=== PATIENT | male | born 1940 | race Caucasian/White ===

== ENCOUNTER 2023-04-03 14:11 | Emergency (ER) | payer MEDICARE, MEDICAID, SELFPAY ==
[2023-04-03 14:12] VITALS: BP 128/68; PULSE 69; RESP 14; O2SAT 100
[2023-04-03 14:13] VITALS: BP 128/68; PULSE 73; RESP 17
--- NOTE | 2023-04-03 14:21 | CT_ITS ---
The [address] [address] Patient Name: FRANCOISE MORRIS MRN: [id number] date: 1940 Sex: M Assigned Patient Location: ER Current Patient Location: ER Accession/Order Number: [id number] Exam Date: 04/03/2023 15:00 Report Date: 04/03/2023 15:39 At the request of: CRISTAL CARDOZA Procedure: CT head/brain wo con EXAMINATION: CT head/brain wo con HISTORY: dizzy, fall ; right forehead hematoma COMPARISON: No relevant comparison available. TECHNIQUE: Axial CT images were obtained without IV contrast. Dose reduction techniques were achieved by using automated exposure control and/or adjustment of mA and/or kV according to patient size and/or use of iterative reconstruction technique. FINDINGS: BRAIN: No edema, hemorrhage, mass, acute infarction, or inappropriate atrophy. CSF SPACES: No hydrocephalus, subarachnoid hemorrhage, or mass. Appropriate for age. SKULL: No fracture, mass, or other significant visible lesion. SINUSES: No significant mucosal thickening or fluid on the limited views. ORBITS: No appreciable abnormality on the limited views. OTHER: Small area of subcutaneous bruising/edema overlying the right calvarium just above the forehead. No radiopaque foreign body. CT/CT head/brain wo con IMPRESSION: 1. No intracranial hemorrhage or acute abnormality. Age consistent chronic changes. 2. Right frontal scalp small hematoma. 3. No fracture of the calvarium. Electronically authenticated by: DEIDRA CAREY Date: 04/03/2023 15:39
--- NOTE | 2023-04-03 14:21 | XR_ITS ---
The [address] [address] Patient Name: FRANCOISE MORRIS MRN: [id number] date: 1940 Sex: M Assigned Patient Location: ER Current Patient Location: ER Accession/Order Number: [id number] Exam Date: 04/03/2023 15:00 Report Date: 04/03/2023 15:22 At the request of: CRISTAL CARDOZA Procedure: XR chest 1V EXAMINATION: XR chest 1V HISTORY: Dizziness COMPARISON: None. TECHNIQUE: Portable chest FINDINGS: The lung parenchyma is free of consolidation or infiltrate. No pneumothorax or pleural effusion. Status post median sternotomy. The cardiac, mediastinal and hilar contours are normal. The visualized osseous structures exhibit no gross abnormality. XR/XR chest 1V IMPRESSION: No acute cardiopulmonary abnormality. Electronically authenticated by: NIALL VILLAFUERTE Date: 04/03/2023 15:22
--- NOTE | 2023-04-03 14:21 | ECG_ITS ---
The [facility] Test Date: 2023-04-03 Pat Name: Livan Fitzgerald Department: Room: - Gender: Male Management Supervisor: : 1940 Requested By: [id number] Order Number: [id number] Reading MD: OG RICHARD Measurements Intervals [place] Rate: 76 P: -[id number] [place]: -[id number] QRS: 177 QRSD: 146 T: 22 QT: 418 QTc: 449 Interpretive Statements 48775 Atrial fibrillation 2330 Nonspecific intraventricular conduction block 3534 Lateral myocardial infarction, age undetermined 9150 abnormal ECG No previous ECG available for comparison Electronically Signed On 04-04-2023 7:11:53 EDT by OG RICHARD
--- NOTE | 2023-04-03 14:23 | CT_ITS ---
[address] [address] Patient Name: FRANCOISE MORRIS MRN: [id number] date: 1940 Sex: M Assigned Patient Location: ER Current Patient Location: ER Accession/Order Number: [id number] Exam Date: 04/03/2023 15:00 Report Date: 04/03/2023 15:45 At the request of: CRISTAL CARDOZA Procedure: CT cervical spine wo con EXAMINATION: CT cervical spine wo con HISTORY: dizzy, fall , right forehead hematoma COMPARISON: CT C-spine 06/08/2022 TECHNIQUE: Axial, Coronal, and Sagittal images were created without IV contrast. Dose reduction techniques were achieved by using automated exposure control and/or adjustment of mA and/or kV according to patient size and/or use of iterative reconstruction technique. FINDINGS: VERTEBRAL BODIES: Slight reversal of the normal lordotic curvature. Mild grade 1 retrolisthesis of C4 in relation to C3 and C5. No fracture. FACET JOINTS: No disruption or abnormal widening. DISCS: Moderate narrowing C3-4. CENTRAL CANAL: Suspect moderate narrowing posterior to C3 on 4 and C4-5. PARASPINAL AREA: No visible mass. CT/CT cervical spine wo con IMPRESSION: 1. No acute abnormality. 2. Stable mild/moderate degenerative changes. Electronically authenticated by: DEIDRA CAREY Date: 04/03/2023 15:45
--- NOTE | 2023-04-03 14:25 | PC.NURSE ---
pt has hx of dementia and is at [facility].
--- NOTE | 2023-04-03 14:29 | ED.GENADUL1 ---
HPI - General Adult General Chief complaint: Head Injury Stated complaint: HEAD INJURY/FALL Time Seen by Provider: 04/03/23 14:21 Source: patient and other Source information: ems Mode of arrival: ambulance Limitations: no limitations History of Present Illness HPI narrative: patient is an 82-year-old male history of dementia presents the emergency department by ambulance for the evaluation of a head injury. Patient was walking into the dining area when nursing staff reports that he got dizzy and fell, hitting his head. Patient is not able to provide any significant history due to his history of dementia. He did not have any syncope, loss of consciousness, complaints of chest pain or visible shortness of breath per skilled nursing staff. He is not anticoagulated. He has no focal medical complaints on arrival to the Emergency Room, he is noted to have an area of bruising and swelling to the front of his head. Related Data Allergies Allergy/AdvReac Type Severity Reaction Status Date / Time No Known Drug Allergies Allergy Verified 04/03/23 14:16 Exam Narrative Exam Narrative: Gen.: Awake, alert, in no distress Head: Normocephalic, atraumatic ENT: Moist mucous membranes, swelling and hematoma noted to the right frontal scalp with no abrasions or lacerations. No Gonzales sign or raccoon eyes. No dental injury noted. Patient iss moving his head at the C-spine with no difficulty or pain Respiratory: No respiratory distress, lungs clear bilaterally Cardio: irregular rate and rhythm Gastrointestinal: Abdomen is soft, nondistended and nontender to palpation, pelvis is stable Extremities: Moves extremities equally, no injuries noted Psych: Normal mood and affect Neuro: at baseline, confused Skin: Warm, dry, intact Constitutional Vital Signs, click to edit/add: Last Vital Signs Pulse 69 04/03/23 14:12 Resp 14 04/03/23 14:12 BP 128/68 H 04/03/23 14:12 Pulse Ox 100 04/03/23 14:12 O2 Del Method Room Air 04/03/23 14:12 Course Vital Signs Vital signs: Vital Signs Pulse Rate 69 04/03/23 14:12 Respiratory Rate 14 04/03/23 14:12 Blood Pressure 128/68 H 04/03/23 14:12 Pulse Oximetry 100 04/03/23 14:12 Oxygen Delivery Method Room Air 04/03/23 14:12 Pulse Rate 69 04/03/23 14:12 Respiratory Rate 14 04/03/23 14:12 Blood Pressure 128/68 H 04/03/23 14:12 Pulse Oximetry 100 04/03/23 14:12 Oxygen Delivery Method Room Air 04/03/23 14:12 Medical Decision Making MDM Narrative Medical decision making narrative: patient with no focal medical complaints in the emergency department. CTs of the head and C-spine are unremarkable and chest x-ray shows no evidence of acute cardiopulmonary changes. EKG, lab studies show stable chronic kidney disease with no acute process or EKG changes from previous. Patient is discharged home to follow-up with PCP as needed and return to the Emergency Room if symptoms change or worsen Medical Records Medical records reviewed: Yes I reviewed the patient's medical records Lab Data Lab results reviewed: Yes I reviewed the patient's lab results Labs: Lab Results 04/03/23 Range/Units 14:38 WBC 7.0 (4.0-11.0) 10^3/uL RBC 3.63 L (4.70-6.10) 10^6/uL Hgb 11.5 L (14.0-18.0) g/dL Hct 33.9 L (42.0-54.0) % MCV 93.4 (80.0-94.0) fL MCH 31.7 (25.9-34.0) pg MCHC 33.9 (29.9-35.2) g/dL RDW 12.7 (11.0-15.0) % Plt Count 124 L (150-450) 10^3/uL MPV 9.0 L (9.5-13.5) fL Neut % (Auto) 64.0 (43.0-75.0) % Lymph % (Auto) 23.7 (20.5-60.0) % [place] % (Auto) 9.6 (1.7-12.0) % Eos % (Auto) 2.1 (0.9-7.0) % Baso % (Auto) 0.3 (0.2-2.0) % Neut # (Auto) 4.5 (1.4-6.5) 10^3/uL Lymph # (Auto) 1.7 (1.2-3.8) 10^3/uL [place] # (Auto) 0.7 (0.3-0.8) 10^3/uL Eos # (Auto) 0.2 (0.0-0.7) 10^3/uL Baso # (Auto) 0.0 (0.0-0.1) 10^3/uL Abs Immat Gran (auto) 0.02 (0.00-0.03) 10^3/uL Imm/Tot Granulo (auto) 0.3 (0.0-0.5) % PT 10.6 (9.0-11.6) sec INR 1.00 APTT 29.8 (22.3-36.2) sec Sodium 139 (136-145) mmol/L Potassium 3.9 (3.5-5.1) mmol/L Chloride 107 (98-107) mmol/L Carbon Dioxide 25.6 (21.0-32.0) mmol/L Anion Gap 10.3 BUN 34.0 H (7.0-18.0) mg/dL Creatinine 1.78 H (0.70-1.30) mg/dL Est GFR ( Amer) 45 L (>=60) Est GFR (Non-Af Amer) 37 L (>=60) BUN/Creatinine Ratio 19.1 Glucose 188 H (74-106) mg/dL Calcium 8.4 L (8.5-10.1) mg/dL Total Bilirubin 0.5 (0.2-1.0) mg/dL AST 30 (15-37) U/L ALT 37 (16-63) U/L Alkaline Phosphatase 115 (46-116) U/L Troponin I High Sens 8.9 (4.0-76.1) pg/mL Total Protein 7.3 (6.4-8.2) g/dL Albumin 3.2 L (3.4-5.0) g/dL Globulin 4.1 g/dL Albumin/Globulin Ratio 0.8 Imaging Data Chest x-ray: Attestation: I have reviewed the pertinent imaging results. Radiologist's impression: Procedure: XR chest 1V EXAMINATION: XR chest 1V HISTORY: Dizziness COMPARISON: None. TECHNIQUE: Portable chest FINDINGS: The lung parenchyma is free of consolidation or infiltrate. No pneumothorax or pleural effusion. Status post median sternotomy. The cardiac, mediastinal and hilar contours are normal. The visualized osseous structures exhibit no gross abnormality. IMPRESSION: No acute cardiopulmonary abnormality. Electronically authenticated by: NIALL VILLAFUERTE Date: 04/03/2023 15:22 CT scan - head: Attestation: I have reviewed the pertinent imaging results. Radiologist's impression: Procedure: CT head/brain wo con EXAMINATION: CT head/brain wo con HISTORY: dizzy, fall ; right forehead hematoma COMPARISON: No relevant comparison available. TECHNIQUE: Axial CT images were obtained without IV contrast. Dose reduction techniques were achieved by using automated exposure control and/or adjustment of mA and/or kV according to patient size and/or use of iterative reconstruction technique. FINDINGS: BRAIN: No edema, hemorrhage, mass, acute infarction, or inappropriate atrophy. CSF SPACES: No hydrocephalus, subarachnoid hemorrhage, or mass. Appropriate for age. SKULL: No fracture, mass, or other significant visible lesion. SINUSES: No significant mucosal thickening or fluid on the limited views. ORBITS: No appreciable abnormality on the limited views. OTHER: Small area of subcutaneous bruising/edema overlying the right calvarium just above the forehead. No radiopaque foreign body. IMPRESSION: 1. No intracranial hemorrhage or acute abnormality. Age consistent chronic changes. 2. Right frontal scalp small hematoma. 3. No fracture of the calvarium. Electronically authenticated by: DEIDRA CAREY Date: 04/03/2023 15:39 CT cervical spine: Attestation: I have reviewed the pertinent imaging results. Radiologist's impression: Procedure: CT cervical spine wo con EXAMINATION: CT cervical spine wo con HISTORY: dizzy, fall , right forehead hematoma COMPARISON: CT C-spine 06/08/2022 TECHNIQUE: Axial, Coronal, and Sagittal images were created without IV contrast. Dose reduction techniques were achieved by using automated exposure control and/or adjustment of mA and/or kV according to patient size and/or use of iterative reconstruction technique. FINDINGS: VERTEBRAL BODIES: Slight reversal of the normal lordotic curvature. Mild grade 1 retrolisthesis of C4 in relation to C3 and C5. No fracture. FACET JOINTS: No disruption or abnormal widening. DISCS: Moderate narrowing C3-4. CENTRAL CANAL: Suspect moderate narrowing posterior to C3 on 4 and C4-5. PARASPINAL AREA: No visible mass. IMPRESSION: 1. No acute abnormality. 2. Stable mild/moderate degenerative changes. Electronically authenticated by: DEIDRA CAREY Date: 04/03/2023 15:45 ECG Data Attestation: I personally reviewed and interpreted this ECG as follows: (normal sinus rhythm with frequent PVCs and sinus arrhythmia, rate of seventy-one, no acute ST elevation. Left bundle branch block noted with no significant change from previous EKG. EKG reviewed by attending physician.) Prior ECG tracings: available for review Discharge Plan Discharge Chief Complaint: Head Injury Clinical Impression: Closed head injury Patient Disposition: Home, Self-Care Time of Disposition Decision: 15:59 Condition: Good Instructions: Head Injury (ED) Stand Alone Forms: Portal Instructions Referrals: BYRON DIETZ [Primary Care Provider] - 1 week
[2023-04-03 14:43] LABS: Basophils Percent Auto 0.3 % (0.2-2.0); Eosinophils Absolute Auto 0.2 10^3/uL (0.0-0.7); Eosinophils Percent Auto 2.1 % (0.9-7.0); Hematocrit 33.9 % (42.0-54.0); Hemoglobin 11.5 g/dL (14.0-18.0); Immature Granulocytes Abs Auto 0.02 10^3/uL (0.00-0.03); Immature Granulocytes Pct Auto 0.3 % (0.0-0.5); Lymphocytes Absolute Auto 1.7 10^3/uL (1.2-3.8); Lymphocytes Percent Auto 23.7 % (20.5-60.0); Mean Corpuscular HGB Conc 33.9 g/dL (29.9-35.2); Mean Corpuscular Hemoglobin 31.7 pg (25.9-34.0); Mean Corpuscular Volume 93.4 fL (80.0-94.0); Monocytes Absolute Auto 0.7 10^3/uL (0.3-0.8); Monocytes Percent Auto 9.6 % (1.7-12.0); Neutrophils Absolute Auto 4.5 10^3/uL (1.4-6.5); Platelet Count 124 10^3/uL (150-450); Red Blood Count 3.63 10^6/uL (4.70-6.10); Red Cell Distribution Width 12.7 % (11.0-15.0)
[2023-04-03 15:02] LABS: Partial Thromboplastin Time 29.8 sec (22.3-36.2); Prothrombin Time 10.6 sec (9.0-11.6)
[2023-04-03 15:07] LABS: Alanine Aminotransferase 37 U/L (16-63); Albumin Globulin Ratio 0.8; Albumin Level 3.2 g/dL (3.4-5.0); Alkaline Phosphatase 115 U/L (46-116); Anion Gap 10.3; Aspartate Amino Transferase 30 U/L (15-37); BUN Creatinine Ratio 19.1; Bilirubin Total 0.5 mg/dL (0.2-1.0); Calcium 8.4 mg/dL (8.5-10.1); Carbon Dioxide 25.6 mmol/L (21.0-32.0); Chloride 107 mmol/L (98-107); Estimated GFR (African America 45 (>=60); Estimated GFR (Non-African Ame 37 (>=60); Globulin 4.1 g/dL; Glucose 188 mg/dL (74-106); Potassium 3.9 mmol/L (3.5-5.1); Sodium 139 mmol/L (136-145); Total Protein 7.3 g/dL (6.4-8.2); Troponin I High Sensitivity 8.9 pg/mL (4.0-76.1)
== END 2023-04-03 18:48 | disposition home or self-care (01) ==
PROVIDERS: Physician Assistant; Emergency Provider Emergency Medicine; PCP Family Medicine
DX: S09.8XXA Other specified injuries of head, initial encounter (principal); S00.03XA Contusion of scalp, initial encounter; F03.90 Unspecified dementia, unspecified severity, without behavioral disturbance, psychotic disturbance, mood disturbance, and anxiety; W19.XXXA Unspecified fall, initial encounter
CPT/HCPCS: 36415; 70450; 71045; 72125; 80053; 81003; 84484; 85025; 85610; 85730; 93005; 99285

== ENCOUNTER 2023-04-23 13:40 | Emergency (ER) | payer MEDICARE, MEDICAID, SELFPAY ==
[2023-04-23 13:44] VITALS: BP 131/67; PULSE 68; RESP 18; TEMP 36.6; O2SAT 98; BMI 22.0
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
[2023-04-23] MEDS: 0.9 % SODIUM CHLORIDE 1,000 ML 999 ML IV (15:11)
[2023-04-23 15:44] LABS: Basophils Percent Auto 0.3 % (0.2-2.0); Eosinophils Absolute Auto 0.2 10^3/uL (0.0-0.7); Eosinophils Percent Auto 2.6 % (0.9-7.0); Hematocrit 37.2 % (42.0-54.0); Hemoglobin 12.5 g/dL (14.0-18.0); Immature Granulocytes Abs Auto 0.02 10^3/uL (0.00-0.03); Immature Granulocytes Pct Auto 0.3 % (0.0-0.5); Lymphocytes Absolute Auto 1.8 10^3/uL (1.2-3.8); Lymphocytes Percent Auto 29.4 % (20.5-60.0); Mean Corpuscular HGB Conc 33.6 g/dL (29.9-35.2); Mean Corpuscular Hemoglobin 31.6 pg (25.9-34.0); Mean Corpuscular Volume 93.9 fL (80.0-94.0); Mean Platelet Volume 9.5 fL (9.5-13.5); Monocytes Absolute Auto 0.5 10^3/uL (0.3-0.8); Monocytes Percent Auto 8.5 % (1.7-12.0); Neutrophils Absolute Auto 3.7 10^3/uL (1.4-6.5); Neutrophils Percent Auto 58.9 % (43.0-75.0); Platelet Count 136 10^3/uL (150-450); Red Blood Count 3.96 10^6/uL (4.70-6.10); Red Cell Distribution Width 12.5 % (11.0-15.0); White Blood Count 6.2 10^3/uL (4.0-11.0)
[2023-04-23 16:04] LABS: Alanine Aminotransferase 32 U/L (16-63); Alkaline Phosphatase 96 U/L (46-116); Anion Gap 11.8; Aspartate Amino Transferase 22 U/L (15-37); BUN Creatinine Ratio 17.7; Bilirubin Total 0.4 mg/dL (0.2-1.0); Calcium 8.4 mg/dL (8.5-10.1); Carbon Dioxide 26.3 mmol/L (21.0-32.0); Chloride 105 mmol/L (98-107); Estimated GFR (African America 40 (>=60); Estimated GFR (Non-African Ame 33 (>=60); Glucose 220 mg/dL (74-106); Potassium 4.1 mmol/L (3.5-5.1); Sodium 139 mmol/L (136-145)
[2023-04-23 16:05] LABS: Acetaminophen <2.0 ug/mL (10.0-30.0); Albumin Globulin Ratio 0.8; Albumin Level 3.5 g/dL (3.4-5.0); Ethanol <3 mg/dL; Globulin 4.2 g/dL; Salicylate <2.8 mg/dL (<=19.9); Total Protein 7.7 g/dL (6.4-8.2)
[2023-04-23 16:12] LABS: Bilirubin Urine NEGATIVE (NEGATIVE); Blood Urine NEGATIVE (NEGATIVE); Clarity Urine CLEAR (CLEAR); Color Urine LT. YELLOW (YELLOW); Glucose Urine UA >=1000 mg/dL (NEGATIVE); Ketones Urine NEGATIVE (NEGATIVE); Leukocyte Esterase Urine NEGATIVE (NEGATIVE); Nitrite Urine NEGATIVE (NEGATIVE); Protein Urine TRACE mg/dL (NEG/TRACE); Urobilinogen Urine 0.2 EU/dL (0.2-1.0); pH Urine 5.5 (5.0-9.0)
[2023-04-23 16:13] LABS: Urine Microscopic Indicated NO
[2023-04-23 16:27] LABS: Amphetamine Screen Urine NEGATIVE (NEGATIVE); Barbiturates Screen Urine NEGATIVE (NEGATIVE); Benzodiazepines Screen Urine NEGATIVE (NEGATIVE); Buprenorphine Screen Urine NEGATIVE (NEGATIVE); Cannabinoid Screen Urine NEGATIVE (NEGATIVE); Cocaine Screen Urine NEGATIVE (NEGATIVE); Methadone Screen Urine NEGATIVE (NEGATIVE); Methamphetamines Screen Urine NEGATIVE (NEGATIVE); Opiate Screen Urine NEGATIVE (NEGATIVE); Oxycodone Screen Urine NEGATIVE (NEGATIVE); Phencyclidine Screen Urine NEGATIVE (NEGATIVE); Tricyclic Antidepressant Urine POSITIVE (NEGATIVE)
[2023-04-23 18:30] VITALS: BP 128/68; PULSE 72; RESP 16; O2SAT 98
[2023-04-23 20:17] LABS: SARS-CoV-2 Ag NEGATIVE (NEGATIVE)
--- NOTE | 2023-04-23 20:30 | ED_ITS ---
HPI - General Adult General Chief complaint: Altered Mental Status Stated complaint: ALTERED MENTAL STATUS Time Seen by Provider: 04/23/23 13:43 Source: caregiver Mode of arrival: ambulance Limitations: no limitations History of Present Illness HPI narrative: This 82-year-old male with a history of schizoaffective disorder and dementia was signed out to me at shift change pending [facility]. [facility] been [facility] to [facility] by Dr Moore. He has not been aggresive but was anxious and pacing around the Emergency department. He was medicated with 1mg po ativan and 50mg op seroquel which allowed him to relax and fall asleep. Related Data Allergies Allergy/AdvReac Type Severity Reaction Status Date / Time No Known Drug Allergies Allergy Verified 04/03/23 14:16 [facility] Medical History (Updated 04/23/23 @ 20:31 by Naye Liu MD) Exam Constitutional Vital Signs, click to edit/add: Last Vital Signs Temp 97.8 F 04/23/23 13:44 Pulse 72 04/23/23 18:30 Resp 16 04/23/23 18:30 BP 128/68 04/23/23 18:30 Pulse Ox 98 04/23/23 18:30 O2 Del Method Room Air 04/23/23 18:30 Course Vital Signs Vital signs: Vital Signs Temperature 97.8 F 04/23/23 13:44 Pulse Rate 68 04/23/23 13:44 Respiratory Rate 18 04/23/23 13:44 Blood Pressure 131/67 04/23/23 13:44 Pulse Oximetry 98 04/23/23 13:44 Oxygen Delivery Method Room Air 04/23/23 13:44 Temperature 97.8 F 04/23/23 13:44 Pulse Rate 72 04/23/23 18:30 Respiratory Rate 16 04/23/23 18:30 Blood Pressure 128/68 04/23/23 18:30 Pulse Oximetry 98 04/23/23 18:30 Oxygen Delivery Method Room Air 04/23/23 18:30 Medical Decision Making MDM Narrative Medical decision making narrative: see my transfer note in HPI Lab Data Labs: Lab Results 04/23/23 04/23/23 Range/Units 15:00 19:36 WBC 6.2 (4.0-11.0) 10^3/uL RBC 3.96 L (4.70-6.10) 10^6/uL Hgb 12.5 L (14.0-18.0) g/dL Hct 37.2 L (42.0-54.0) % MCV 93.9 (80.0-94.0) fL MCH 31.6 (25.9-34.0) pg MCHC 33.6 (29.9-35.2) g/dL RDW 12.5 (11.0-15.0) % Plt Count 136 L (150-450) 10^3/uL MPV 9.5 (9.5-13.5) fL Neut % (Auto) 58.9 (43.0-75.0) % Lymph % (Auto) 29.4 (20.5-60.0) % [place] % (Auto) 8.5 (1.7-12.0) % Eos % (Auto) 2.6 (0.9-7.0) % Baso % (Auto) 0.3 (0.2-2.0) % Neut # (Auto) 3.7 (1.4-6.5) 10^3/uL Lymph # (Auto) 1.8 (1.2-3.8) 10^3/uL [place] # (Auto) 0.5 (0.3-0.8) 10^3/uL Eos # (Auto) 0.2 (0.0-0.7) 10^3/uL Baso # (Auto) 0.0 (0.0-0.1) 10^3/uL Abs Immat Gran (auto) 0.02 (0.00-0.03) 10^3/uL Imm/Tot Granulo (auto) 0.3 (0.0-0.5) % Sodium 139 (136-145) mmol/L Potassium 4.1 (3.5-5.1) mmol/L Chloride 105 (98-107) mmol/L Carbon Dioxide 26.3 (21.0-32.0) mmol/L Anion Gap 11.8 BUN 35.0 H (7.0-18.0) mg/dL Creatinine 1.98 H (0.70-1.30) mg/dL Est GFR ( Amer) 40 L (>=60) Est GFR (Non-Af Amer) 33 L (>=60) BUN/Creatinine Ratio 17.7 Glucose 220 H (74-106) mg/dL Calcium 8.4 L (8.5-10.1) mg/dL Total Bilirubin 0.4 (0.2-1.0) mg/dL AST 22 (15-37) U/L ALT 32 (16-63) U/L Alkaline Phosphatase 96 (46-116) U/L Total Protein 7.7 (6.4-8.2) g/dL Albumin 3.5 (3.4-5.0) g/dL Globulin 4.2 g/dL Albumin/Globulin Ratio 0.8 Urine Color Lt. yellow (YELLOW) Urine Clarity Clear (CLEAR) Urine pH 5.5 (5.0-9.0) Ur Specific [place] 1.020 (1.005-1.025) Urine Protein Trace (NEG/TRACE) mg/dL Urine Glucose (UA) >=1000 A (NEGATIVE) mg/dL Urine Ketones Negative (NEGATIVE) mg/dL Urine Occult Blood Negative (NEGATIVE) Urine Nitrite Negative (NEGATIVE) Urine Bilirubin Negative (NEGATIVE) Urine Urobilinogen 0.2 (0.2-1.0) EU/dL Ur Leukocyte Esterase Negative (NEGATIVE) Salicylates <2.8 (<=19.9) mg/dL Urine Opiates Screen Negative (NEGATIVE) Ur Buprenorphine Scrn Negative (NEGATIVE) Ur Oxycodone Screen Negative (NEGATIVE) Urine Methadone Screen Negative (NEGATIVE) Ur Propoxyphene Screen Negative (NEGATIVE) Acetaminophen <2.0 L (10.0-30.0) ug/mL Ur Barbiturates Screen Negative (NEGATIVE) U Tricyclic Antidepress Positive A (NEGATIVE) Ur Phencyclidine Scrn Negative (NEGATIVE) Ur Amphetamines Screen Negative (NEGATIVE) U Methamphetamines Scrn Negative (NEGATIVE) U Benzodiazepines Scrn Negative (NEGATIVE) Urine Cocaine Screen Negative (NEGATIVE) U Cannabinoids Screen Negative (NEGATIVE) Ethanol Quant <3 mg/dL SARS-CoV-2 (PCR) Negative (NEGATIVE) ECG Data Attestation: I personally reviewed and interpreted this ECG as follows: (Sinus rhythm at 75 beats for minute, left bundle branch block, first-degree AV block, left axis deviation, no acute ST segment elevation or T-wave inversion, CO interval is 262 ms QRS duration 156 ms QT interval 432 ms QTC 461 ms ) Discharge Plan Discharge Chief Complaint: Altered Mental Status Clinical Impression: Aggression, Altered mental status, Dementia with behavioral disturbance Patient Disposition: [facility] Time of Disposition Decision: 22:52 Condition: Fair
--- NOTE | 2023-04-23 20:53 | ECG_ITS ---
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
[2023-04-23] MEDS: LORAZEPAM 0.5 MG TABLET 1 MG PO (21:30)
[2023-04-23] MEDS: QUETIAPINE FUMARATE 25 MG TABLET 50 MG PO (22:05)
[2023-04-25 15:49] LABS: SARS-CoV-2 NAA NOT DETECTED (NOT DETECTE)
== END 2023-04-23 23:39 ==
PROVIDERS: Emergency Medicine; Physician Assistant; Emergency Provider Emergency Medicine; PCP Family Medicine
DX: F03.911 Unspecified dementia, unspecified severity, with agitation (principal); I10 Essential (primary) hypertension; E78.5 Hyperlipidemia, unspecified; F32.9 Major depressive disorder, single episode, unspecified; J44.9 Chronic obstructive pulmonary disease, unspecified; F25.9 Schizoaffective disorder, unspecified; F01.50 Vascular dementia, unspecified severity, without behavioral disturbance, psychotic disturbance, mood disturbance, and anxiety; R47.02 Dysphasia; E11.22 Type 2 diabetes mellitus with diabetic chronic kidney disease; N18.30 Chronic kidney disease, stage 3 unspecified; Z20.822 Contact with and (suspected) exposure to COVID-19; Z79.899 Other long term (current) drug therapy; Z66 Do not resuscitate; Z91.81 History of falling
CPT/HCPCS: 36415; 80053; 80179; 80307; 80320; 80329; 81003; 85025; 87635; 87811; 93005; 96360; 99285